=== PATIENT | male | born 1970 ===

== ENCOUNTER 2017-12-13 16:40 | Inpatient (IN) | payer OTHER ==
--- NOTE | 2017-12-13 17:30 | ED PDOC ---
HPI: SOB/CHF/COPD Time Seen by Provider: 12/13/17 17:10 Chief Complaint (Nursing): Shortness Of Breath Chief Complaint (Provider): Cough and shortness of breath History Per: Patient History/Exam Limitations: no limitations Additional Complaint(s): Patient is a 47 y/o male with a past medical history of bronchitis presenting to the emergency department for a cough, shortness of breath, and a recent fever ongoing for one week. Patient was sent from his PMD Dr. Briggs who noted that patient had pneumonia as found by a chest x-ray performed. Reports frequent cases of bronchitis over the winter. However, states that this year his symptoms seem worse. Further notes body aches and a headache when coughing. Denies hemoptysis, lower extremity edema, or other complaints. Of note, patient did not receive the flu shot this year. Past Medical History Reviewed: Historical Data, Nursing Documentation, Vital Signs Vital Signs: Last Vital Signs Temp 98.5 F 12/13/17 16:52 Pulse 108 H 12/13/17 18:18 Resp 16 12/13/17 16:52 BP 134/85 12/13/17 16:52 Pulse Ox 100 12/13/17 18:18 - Medical History PMH: Bronchitis - Surgical History Surgical History: Hernia Repair Other surgeries: hand and knee surgery - Family History Family History: States: Stroke - Social History Current smoker - smoking cessation education provided: No Ex-Smoker (has not smoked in the last 12 months): No - Allergies Allergies/Adverse Reactions: Allergies Allergy/AdvReac Type Severity Reaction Status Date / Time No Known Allergies Allergy Verified 12/13/17 16:51 Review of Systems ROS Statement: Except As Marked, All Systems Reviewed And Found Negative Constitutional: Positive for: Fever, Chills, Malaise, Other (fatigue) Cardiovascular: Negative for: Edema (extremity) Respiratory: Positive for: Cough. Negative for: Hemoptysis Physical Exam - Reviewed Nursing Documentation Reviewed: Yes Vital Signs Reviewed: Yes - Physical Exam Appears: Positive for: Well, Non-toxic, No Acute Distress Head Exam: Positive for: ATRAUMATIC, NORMAL INSPECTION, NORMOCEPHALIC Skin: Positive for: Normal Color, Warm, Dry Eye Exam: Positive for: Normal appearance Neck: Positive for: Normal Cardiovascular/Chest: Positive for: Regular Rate, Rhythm. Negative for: Murmur Respiratory: Positive for: Normal Breath Sounds. Negative for: Accessory Muscle Use, Respiratory Distress Gastrointestinal/Abdominal: Positive for: Normal Exam, Soft. Negative for: Tenderness Extremity: Positive for: Normal ROM. Negative for: Pedal Edema Neurologic/Psych: Positive for: Alert, maintenance controller II-XII (normal), Oriented (x3), Cerebellar Tests (normal), Gait (steady). Negative for: Motor/Sensory Deficits , Aphasia, Facial Droop - Laboratory Results Result Diagrams: 12/13/17 17:42 12/13/17 17:42 - ECG ECG: Positive for: Interpreted By Me, Viewed By Me ECG Rhythm: Positive for: Sinus Tachycardia, Nonspecific Changes Rate: 108 O2 Sat by Pulse Oximetry: 100 (RA) Pulse Ox Interpretation: Normal Medical Decision Making Medical Decision Making: Time: 17:11 Initial plan: Venous blood gases EKG CMP Lipase Magnesium Phosphorous CBC Partial Thomboplastin Prothrombin Time CXR Urine Culture Influenza Stat Urinalysis Reevaluation Work up for upper respiratory infection and pneumonia will be provided. Rule out sepsis. 17:23 Chest x-ray reviewed. Findings noted as follows: FINDINGS: LUNGS: Infiltrate lateral segment right lower lobe with air bronchograms likely pneumonia. PLEURA: No significant pleural effusion identified, no pneumothorax apparent. CARDIOVASCULAR: Normal. OSSEOUS STRUCTURES: No significant abnormalities. VISUALIZED UPPER ABDOMEN: Normal. OTHER FINDINGS: None. IMPRESSION: Right lower lobe infiltrate/pneumonia. Pt to be admitted to Dr Briggs Repeat lactate ordered Scribe Attestation: Documented by Stefania Sanders, acting as a scribe for Trevor Bethea III, DO. Provider Scribe Attestation: All medical record entries made by the Scribe were at my direction and personally dictated by me. I have reviewed the chart and agree that the record accurately reflects my personal performance of the history, physical exam, medical decision making, and the department course for this patient. I have also personally directed, reviewed, and agree with the discharge instructions and disposition. Disposition - Clinical Impression Clinical Impression: Pneumonia - Patient ED Disposition Is Patient to be Admitted: Yes Counseled Patient/Family Regarding: Studies Performed, Diagnosis - Disposition Disposition Time: 18:45 Condition: FAIR Forms: [employer] (Albanian) - Pt Status Changed To: Hospital Disposition Of: Inpatient - Admit Certification Admit to Inpatient:: After my assessment, the patient will require hospitalization for at least two midnights. This is because of the severity of symptoms shown, intensity of services needed, and/or the medical risk in this patient being treated as an outpatient. - POA Present On Arrival: None
[2017-12-13 17:46] LABS: BASO % 0.4 % (0.0-2.0); EOS % 0.2 % (0.0-4.0); HEMOGLOBIN 15.4 g/dL (12.0-18.0); LYMPH # 0.4 K/uL (1.0-4.3); LYMPH % 4.9 % (20.0-40.0); MEAN CELL VOLUME 88.1 fl (80.0-94.0); MEAN CORPUSCULAR HEMOGLOBIN 30.1 pg (27.0-31.0); MEAN CORPUSCULAR HGB CONC 34.2 g/dL (33.0-37.0); MEAN PLATELET VOLUME 8.1 fl (7.2-11.7); MONO # 0.3 K/uL (0.0-0.8); MONO % 3.7 % (0.0-10.0); NEUT # 7.4 K/uL (1.8-7.0); NEUT % 90.8 % (50.0-75.0); NRBC % 0.5 % (0.0-0.0); PLATELET COUNT 177 K/uL (130-400); RBC 5.12 Mil/uL (4.40-5.90); RED CELL DISTRIBUTION WIDTH 13.8 % (11.5-14.5); WHITE BLOOD COUNT 8.2 K/uL (4.8-10.8)
[2017-12-13 17:54] LABS: VENOUS BLOOD GAS BASE EXCESS 1.1 mmol/L (0.0-2.0); VENOUS BLOOD GAS PCO2 37 mmHg (40-60); VENOUS BLOOD GAS PO2 17 mm/Hg (30-55); VENOUS BLOOD PH 7.44 (7.32-7.43)
[2017-12-13 17:56] LABS: ALB/GLOB RATIO 1.2 (1.0-2.1); ALBUMIN 4.4 g/dL (3.5-5.0); ALT/SGPT 45 U/L (21-72); AST/SGOT 29 U/L (17-59); BLOOD UREA NITROGEN 14 mg/dl (9-20); CALCIUM 9.2 mg/dL (8.4-10.2); GFR AFRICAN-AMERICAN > 60; GFR NON-AFRICAN AMERICAN > 60; LIPASE 26 U/L (23-300); MAGNESIUM 1.9 MG/DL (1.6-2.3)
--- NOTE | 2017-12-13 18:12 | RAD ---
HISTORY: History of pneumonia COMPARISON: No prior. FINDINGS: LUNGS: Infiltrate lateral segment right lower lobe with air bronchograms likely pneumonia. PLEURA: No significant pleural effusion identified, no pneumothorax apparent. CARDIOVASCULAR: Normal. OSSEOUS STRUCTURES: No significant abnormalities. VISUALIZED UPPER ABDOMEN: Normal. OTHER FINDINGS: None. IMPRESSION: Right lower lobe infiltrate/pneumonia.
[2017-12-13 18:15] LABS: INR 1.2 (0.9-1.2); PARTIAL THROMBOPLASTIN TIME 29.2 Seconds (25.6-37.1)
[2017-12-13] MEDS ORDERED: Sodium Chloride 0.9% 1,000 ML IV STA (19:09)
[2017-12-13 19:26] LABS: LYMPHOCYTE 5 % (20-50); MONOCYTE 4 % (0-10); NEUTROPHIL 91 % (42-75); PLATELET ESTIMATE NORMAL (NORMAL); TOTAL CELLS COUNTED 100
[2017-12-13 20:37] LABS: SQUAMOUS EPITHIAL 5 /hpf (0-5); URINE BILIRUBIN NEGATIVE (NEGATIVE); URINE BLOOD SMALL (NEGATIVE); URINE CLARITY SLIGHTY-CLOUDY (Clear); URINE COLOR YELLOW (YELLOW); URINE GLUCOSE (UA) NEG (Normal); URINE LEUKOCYTE ESTERASE SMALL Leu/uL (Negative); URINE NITRATE NEGATIVE (NEGATIVE); URINE PROTEIN 100 mg/dL (NEGATIVE)
[2017-12-13 21:08] LABS: VENOUS BLOOD GAS BASE EXCESS 0.1 mmol/L (0.0-2.0); VENOUS BLOOD GAS PCO2 34 mmHg (40-60); VENOUS BLOOD GAS PO2 33 mm/Hg (30-55); VENOUS BLOOD PH 7.45 (7.32-7.43)
[2017-12-13] MEDS ORDERED: Sodium Chloride 3% for Inhalation 4 ML VIAL.NEB IH PRN (21:32)
[2017-12-13] MEDS: Albuterol 0.083% Inhal Sol (2.5 mg/3 mL) UD INH PRN (23:24)
[2017-12-13] MEDS: Sodium Chloride 0.9% 1,000 ML IV SCH (23:59)
[2017-12-14] MEDS ORDERED: Influenza Vaccine 18yr & older 0.5 ML/45 MCG SYR IM ONE (06:00)
[2017-12-14] MEDS ORDERED: Pneumococcal 23-Valent Vaccine IM ONE (06:00)
[2017-12-14 06:35] LABS: BLOOD UREA NITROGEN 14 mg/dl (9-20); CALCIUM 8.5 mg/dL (8.4-10.2); GFR AFRICAN-AMERICAN > 60; GFR NON-AFRICAN AMERICAN > 60
[2017-12-14 06:39] LABS: BASO % 0.2 % (0.0-2.0); HEMOGLOBIN 13.9 g/dL (12.0-18.0); LYMPH # 0.7 K/uL (1.0-4.3); LYMPH % 10.2 % (20.0-40.0); MEAN CORPUSCULAR HGB CONC 34.1 g/dL (33.0-37.0); MEAN PLATELET VOLUME 8.4 fl (7.2-11.7); MONO # 0.5 K/uL (0.0-0.8); MONO % 6.8 % (0.0-10.0); NEUT # 5.8 K/uL (1.8-7.0); NEUT % 82.8 % (50.0-75.0); NRBC % 0.1 % (0.0-0.0); RBC 4.63 Mil/uL (4.40-5.90); RED CELL DISTRIBUTION WIDTH 13.2 % (11.5-14.5)
[2017-12-14] MEDS ORDERED: Azithromycin 500 MG in Sodium Chloride 0.9% 250 ML IVPB SCH (09:00)
[2017-12-14] MEDS: Enoxaparin 40 mg Syringe SC SCH (09:00)
[2017-12-14] MEDS: Sodium Chloride 0.9% 1,000 ML IV SCH (09:05)
[2017-12-14] MEDS: Albuterol 0.083% Inhal Sol (2.5 mg/3 mL) UD INH PRN (09:07)
--- NOTE | 2017-12-14 12:55 | RAD ---
HISTORY: Pneumonia. COMPARISON: December 13, 2017. TECHNIQUE: Chest PA and lateral FINDINGS: LUNGS: Stable right middle lobe infiltrate PLEURA: No significant pleural effusion identified. No pneumothorax apparent. CARDIOVASCULAR: No radiographic findings to suggest acute or significant cardiovascular disease. OSSEOUS STRUCTURES: No significant abnormalities. VISUALIZED UPPER ABDOMEN: Normal. OTHER FINDINGS: None. IMPRESSION: Stable infiltrate right lung/ right middle lobe lateral segment consistent with acute pneumonia unchanged compared to the prior study.
[2017-12-14] MEDS: Azithromycin 500 MG in Sodium Chloride 0.9% 250 ML IVPB SCH (13:05)
--- NOTE | 2017-12-14 13:54 | CP.PCM.HP ---
History of Present Illness - History of Present Illness History of Present Illness: Patient presented with hx of fever, persistent severe cough,SOB, rigors, headaches, myalgia and general malaise x 3 days. In ER was found to have a large rt lover lobe infiltrate, lactic acidosis t 101, tachycardia, hypoximia. Patient still c/o rigors, fever, general malaise. Denies any exposure to TB, smoking, chemical exposure, COPD> Patient on Testosterone replacement TestoPal. The pulmonary side effect of the drug include pulmonary microembolism, respiratory infection, copd, respiratory distress. Present on Admission - Present on Admission Any Indicators Present on Admission: No Past Patient History - Past Medical History & Family History Past Medical History?: Yes - Past Social History Smoking Status: Former Smoker - CARDIAC Hx Cardiac Disorders: No - PULMONARY Hx Respiratory Disorders: Yes Hx Bronchitis: Yes - NEUROLOGICAL Hx Neurological Disorder: No - HEENT Hx HEENT Problems: No - RENAL Hx Chronic Kidney Disease: No - ENDOCRINE/METABOLIC Hx Endocrine Disorders: No - HEMATOLOGICAL/ONCOLOGICAL Hx Blood Disorders: No - INTEGUMENTARY Hx Dermatological Problems: No - MUSCULOSKELETAL/RHEUMATOLOGICAL Hx Musculoskeletal Disorders: No Hx Falls: No - GASTROINTESTINAL Hx Gastrointestinal Disorders: No - GENITOURINARY/GYNECOLOGICAL Hx Genitourinary Disorders: No - PSYCHIATRIC Hx Psychophysiologic Disorder: No Hx Substance Use: No - SURGICAL HISTORY Hx Surgeries: Yes Hx Herniorrhaphy: Yes (Left inguinal) Other/Comment: right knee surgery x 2. right hand surgery X 2 - ANESTHESIA Hx Anesthesia: Yes Hx Anesthesia Reactions: No Hx Malignant Hyperthermia: No Meds Allergies/Adverse Reactions: Allergies Allergy/AdvReac Type Severity Reaction Status Date / Time No Known Allergies Allergy Verified 12/13/17 16:51 Physical Exam - Constitutional Appears: Chronically Ill - Head Exam Head Exam: ATRAUMATIC, NORMAL INSPECTION, NORMOCEPHALIC - Eye Exam Eye Exam: Normal appearance - ENT Exam ENT Exam: Mucous Membranes Moist - Neck Exam Neck exam: Positive for: Normal Inspection - Respiratory Exam Respiratory Exam: Decreased Breath Sounds, Rales, Rhonchi - Cardiovascular Exam Cardiovascular Exam: Bradycardia, REGULAR RHYTHM, +S1, +S2 - GI/Abdominal Exam GI & Abdominal Exam: Normal Bowel Sounds - Extremities Exam Extremities exam: Positive for: normal inspection - Neurological Exam Neurological exam: Alert, CN II-XII Intact, Oriented x3, Reflexes Normal - Psychiatric Exam Psychiatric exam: Normal Affect - Skin Skin Exam: Normal Color Results - Vital Signs Recent Vital Signs: Last Vital Signs Temp 99.4 F 12/14/17 12:00 Pulse 115 H 12/14/17 12:00 Resp 18 12/14/17 12:00 BP 140/81 12/14/17 12:00 Pulse Ox 96 12/14/17 12:00 - Labs Result Diagrams: 12/14/17 05:45 12/14/17 05:45 Labs: Laboratory Results - last 24 hr 12/13/17 12/13/17 12/13/17 17:40 17:42 17:42 WBC 8.2 RBC 5.12 Hgb 15.4 Hct 45.1 MCV 88.1 MCH 30.1 MCHC 34.2 RDW 13.8 Plt Count 177 MPV 8.1 Neut % (Auto) 90.8 H Lymph % (Auto) 4.9 L [place] % (Auto) 3.7 Eos % (Auto) 0.2 Baso % (Auto) 0.4 Neut # 7.4 H Lymph # 0.4 L [place] # 0.3 Eos # 0.0 Baso # 0.0 Neutrophils % (Manual) 91 H Lymphocytes % (Manual) 5 L Monocytes % (Manual) 4 Platelet Estimate Normal RBC Morphology Normal PT 13.0 INR 1.2 APTT 29.2 pO2 VBG pH VBG pCO2 VBG HCO3 VBG Total CO2 VBG O2 Sat (Calc) VBG Base Excess VBG Potassium Glucose Lactate FiO2 Sodium Potassium Chloride Carbon Dioxide Anion Gap BUN Creatinine Est GFR ( Amer) Est GFR (Non-Af Amer) Random Glucose Calcium Phosphorus Magnesium Total Bilirubin AST ALT Alkaline Phosphatase Total Protein Albumin Globulin Albumin/Globulin Ratio Lipase Venous Blood Potassium Urine Color Urine Clarity Urine pH Ur Specific [place] Urine Protein Urine Glucose (UA) Urine Ketones Urine Blood Urine Nitrate Urine Bilirubin Urine Urobilinogen Ur Leukocyte Esterase Urine RBC (Auto) Urine Microscopic WBC Ur Squamous Epith Cells Influenza Typ A,B (EIA) Negative for flu a/b 12/13/17 12/13/17 12/13/17 17:42 17:49 19:46 WBC RBC Hgb Hct MCV MCH MCHC RDW Plt Count MPV Neut % (Auto) Lymph % (Auto) [place] % (Auto) Eos % (Auto) Baso % (Auto) Neut # Lymph # [place] # Eos # Baso # Neutrophils % (Manual) Lymphocytes % (Manual) Monocytes % (Manual) Platelet Estimate RBC Morphology PT INR APTT pO2 17 L VBG pH 7.44 H VBG pCO2 37 L VBG HCO3 23.9 VBG Total CO2 26.2 VBG O2 Sat (Calc) 51.1 VBG Base Excess 1.1 VBG Potassium 3.5 L Glucose 113 H Lactate 2.0 FiO2 21.0 Sodium 140 138.0 Potassium 3.6 Chloride 102 102.0 Carbon Dioxide 25 Anion Gap 17 BUN 14 Creatinine 1.2 Est GFR ( Amer) > 60 Est GFR (Non-Af Amer) > 60 Random Glucose 117 H Calcium 9.2 Phosphorus 1.7 L Magnesium 1.9 Total Bilirubin 3.3 H AST 29 ALT 45 Alkaline Phosphatase 80 Total Protein 8.0 Albumin 4.4 Globulin 3.6 Albumin/Globulin Ratio 1.2 Lipase 26 Venous Blood Potassium 3.5 L Urine Color Yellow Urine Clarity Slighty-cloudy Urine pH 7.0 Ur Specific [place] 1.027 Urine Protein 100 Urine Glucose (UA) Neg Urine Ketones Trace Urine Blood Small Urine Nitrate Negative Urine Bilirubin Negative Urine Urobilinogen 4.0 Ur Leukocyte Esterase Small Urine RBC (Auto) 6 H Urine Microscopic WBC 7 H Ur Squamous Epith Cells 5 Influenza Typ A,B (EIA) 12/13/17 12/14/17 12/14/17 21:05 05:45 05:45 WBC 7.0 RBC 4.63 Hgb 13.9 Hct 40.7 MCV 88.0 MCH 30.0 MCHC 34.1 RDW 13.2 Plt Count 163 MPV 8.4 Neut % (Auto) 82.8 H Lymph % (Auto) 10.2 L [place] % (Auto) 6.8 Eos % (Auto) 0.0 Baso % (Auto) 0.2 Neut # 5.8 Lymph # 0.7 L [place] # 0.5 Eos # 0.0 Baso # 0.0 Neutrophils % (Manual) Lymphocytes % (Manual) Monocytes % (Manual) Platelet Estimate RBC Morphology PT INR APTT pO2 33 VBG pH 7.45 H VBG pCO2 34 L VBG HCO3 24.2 VBG Total CO2 24.6 VBG O2 Sat (Calc) 81.0 H VBG Base Excess 0.1 VBG Potassium 3.4 L Glucose 132 H Lactate 1.6 FiO2 21.0 Sodium 136.0 139 Potassium 3.6 Chloride 104.0 105 Carbon Dioxide 22 Anion Gap 16 BUN 14 Creatinine 0.9 Est GFR ( Amer) > 60 Est GFR (Non-Af Amer) > 60 Random Glucose 118 H Calcium 8.5 Phosphorus Magnesium Total Bilirubin AST ALT Alkaline Phosphatase Total Protein Albumin Globulin Albumin/Globulin Ratio Lipase Venous Blood Potassium 3.4 L Urine Color Urine Clarity Urine pH Ur Specific [place] Urine Protein Urine Glucose (UA) Urine Ketones Urine Blood Urine Nitrate Urine Bilirubin Urine Urobilinogen Ur Leukocyte Esterase Urine RBC (Auto) Urine Microscopic WBC Ur Squamous Epith Cells Influenza Typ A,B (EIA) Assessment & Plan (1) Testosterone deficiency Status: Acute (2) Pneumonia Status: Acute (3) Pulmonary embolism Status: Acute - Assessment and Plan (Free Text) Plan: As per orders.
[2017-12-14] MEDS ORDERED: Iodixanol 320 MG/ML 100 ML BOTTLE IV ONE (16:35)
[2017-12-14] MEDS ORDERED: Sodium Chloride 0.9% 50 ML IV ONE (16:36)
[2017-12-14] MEDS: Lactobacillus Acidophilus 500 MU Cap PO SCH (17:12)
[2017-12-14] MEDS: Piperacillin/Tazobact 3.375 GM in Sodium Chloride 0.9% 100 ML IVPB SCH (17:13)
--- NOTE | 2017-12-14 18:49 | CT ---
PROCEDURE: CT Chest with contrast (Pulmonary Angiogram) HISTORY: r/o PE COMPARISON: None available. TECHNIQUE: Axial computed tomography images were obtained of the chest in the pulmonary arterial phase of enhancement. Coronal and sagittal reformatted images were created and reviewed. Maximum intensity projection (MIP) reconstructed images in the following planes: Axial projection. Intravenous contrast dose: 95 cc Omnipaque 300. Mean Hounsfield unit values in the main pulmonary artery: 225.26 Radiation dose: Total exam DLP = 442.84 mGy-cm. This CT exam was performed using one or more of the following dose reduction techniques: Automated exposure control, adjustment of the mA and/or kV according to patient size, and/or use of iterative reconstruction technique. FINDINGS: PULMONARY ARTERIES: Unremarkable. No pulmonary embolism. AORTA: No acute findings. No thoracic aortic aneurysm. LUNGS: Extensive right middle lobe infiltrate/pneumonia. Similar findings identified on recent chest radiograph. No additional pulmonary abnormality is. PLEURAL SPACES: Unremarkable. No effusion or pneuomothorax. HEART: Unremarkable. No cardiomegaly. No significant pericardial effusion. LYMPH NODES: Solitary right hilar lymph node 1.4 x 2.2 cm of uncertain etiology/ significance. BONES, CHEST WALL: Unremarkable. No fracture or destructive lesion OTHER FINDINGS: Unremarkable. IMPRESSION: Unremarkable CT pulmonary angiogram. No pulmonary embolus. Limitations of the current examination: Nondiagnostic assessment of pulmonary emboli beyond the segmental branch level. Poor opacification of pulmonary arterial system with contrast measured quantitatively as well as qualitatively noted. Right middle lobe infiltrate/pneumonia.
[2017-12-15] MEDS: Piperacillin/Tazobact 3.375 GM in Sodium Chloride 0.9% 100 ML IVPB SCH ×3 (00:39→18:23)
[2017-12-15 06:07] LABS: HEMOGLOBIN 13.9 g/dL (12.0-18.0); MEAN CELL VOLUME 88.6 fl (80.0-94.0); MEAN CORPUSCULAR HEMOGLOBIN 29.7 pg (27.0-31.0); MEAN CORPUSCULAR HGB CONC 33.6 g/dL (33.0-37.0); RBC 4.68 Mil/uL (4.40-5.90); RED CELL DISTRIBUTION WIDTH 13.6 % (11.5-14.5); WHITE BLOOD COUNT 6.2 K/uL (4.8-10.8)
[2017-12-15 06:24] LABS: BLOOD UREA NITROGEN 15 mg/dl (9-20); CALCIUM 8.8 mg/dL (8.4-10.2); GFR AFRICAN-AMERICAN > 60; GFR NON-AFRICAN AMERICAN > 60
[2017-12-15] MEDS: Azithromycin 500 MG in Sodium Chloride 0.9% 250 ML IVPB SCH (09:18)
[2017-12-15] MEDS: Enoxaparin 40 mg Syringe SC SCH (09:19)
[2017-12-15] MEDS: Lactobacillus Acidophilus 500 MU Cap PO SCH ×2 (09:20→18:23)
--- NOTE | 2017-12-15 11:20 | CARD ---
APPROVED REPORT EKG Measurement Heart [id number] CT [id number] <Conclusion> Sinus tachycardia Nonspecific T wave abnormality Abnormal ECG
--- NOTE | 2017-12-15 11:41 | CP.PCM.CON ---
History of Present Illness - History of Present Illness History of Present Illness: This 47-year-old male former cigarette smoker who receives testosterone replacement therapy was admitted by his primary medical doctor because of fever with productive cough, shortness of breath, chills with myalgias and general malaise which had persisted for approximately one week prior to this admission despite outpatient therapy. He was referred for chest x-ray which revealed a right lower lobe infiltrate and was found to be tachycardic and mildly hypoxemic when he presented to the emergency department. He denied chest pain or hemoptysis. He does admit to having had prior episodes of bronchitis which occur primarily over the winter months. He denied any known ill contact. Past medical history: Recurrent bronchitis. No prior history of pneumonia, asthma, tuberculosis exposure, coronary artery disease, hypertension, diabetes, peptic ulcer disease or renal disease. He did have mononucleosis but no other liver disease. Past surgical history: Left inguinal hernia repair, right knee and right hand surgery. Past Patient History - Past Medical History & Family History Past Medical History?: Yes - Past Social History Smoking Status: Former Smoker Chewing Tobacco Use: No Cigar Use: No Alcohol: Social Drugs: Denies Home Situation {Lives}: With Family - CARDIAC Hx Cardiac Disorders: No - PULMONARY Hx Bronchitis: Yes - NEUROLOGICAL Hx Neurological Disorder: No - HEENT Hx HEENT Problems: No - RENAL Hx Chronic Kidney Disease: No - ENDOCRINE/METABOLIC Hx Endocrine Disorders: No - HEMATOLOGICAL/ONCOLOGICAL Hx Blood Disorders: No - INTEGUMENTARY Hx Dermatological Problems: No - MUSCULOSKELETAL/RHEUMATOLOGICAL Hx Musculoskeletal Disorders: No Hx Falls: No - GASTROINTESTINAL Hx Gastrointestinal Disorders: No Other/Comment: Mononucleosis - GENITOURINARY/GYNECOLOGICAL Hx Genitourinary Disorders: No - PSYCHIATRIC Hx Psychophysiologic Disorder: No Hx Substance Use: No - SURGICAL HISTORY Hx Surgeries: Yes Hx Herniorrhaphy: Yes (Left inguinal) Other/Comment: right knee surgery x 2. right hand surgery X 2 - ANESTHESIA Hx Anesthesia: Yes Hx Anesthesia Reactions: No Hx Malignant Hyperthermia: No Meds Allergies/Adverse Reactions: Allergies Allergy/AdvReac Type Severity Reaction Status Date / Time Iodinated Contrast- Oral and AdvReac ITCHING Verified 12/14/17 15:49 IV Dye - Medications Medications: Current Medications Acetaminophen (Tylenol 325mg Tab) 650 mg PO Q4 PRN PRN Reason: fever Last Admin: 01/23/18 13:59 Dose: 650 mg Albuterol Sulfate (Albuterol 0.083% Inhal Suzanne (2.5 Mg/3 Ml) Ud) 2.5 mg INH RQ6 PRN PRN Reason: Shortness of Breath Last Admin: 12/14/17 09:07 Dose: 2.5 mg Aspirin (Aspirin Chewable) 81 mg PO DAILY [facility] Last Admin: 12/15/17 09:17 Dose: 81 mg Enoxaparin Sodium (Lovenox) 40 mg SC DAILY MAHESH PRN Reason: Protocol Last Admin: 12/15/17 09:19 Dose: 40 mg Azithromycin 500 mg/ Sodium (Chloride) 250 mls @ 250 mls/hr IVPB DAILY MAHESH PRN Reason: Protocol Last Admin: 12/15/17 09:18 Dose: 250 mls/hr Piperacillin Sod/Tazobactam (Sod 3.375 gm/ Sodium Chloride) 100 mls @ 100 mls/ hr IVPB Q8 MAHESH PRN Reason: Protocol Last Admin: 12/15/17 09:17 Dose: 100 mls/hr Lactobacillus Acidophilus (Bacid Acidophilus) 1 cap PO BID [facility] Last Admin: 12/15/17 09:20 Dose: 1 cap Physical Exam - Additional Findings Additional findings: Well-nourished, well-developed male with generalized flushing. Conjunctivae are pink and there is no scleral icterus. Nares are patent bilaterally. No bleeding or exudate. Pharynx is pink and mucous membranes are moist. No neck vein distention or carotid bruit. No palpable thyromegaly. No palpable lymphadenopathy. No dullness on chest percussion. Equal expansion. Normal vocal tactile fremitus. Breath sounds are well heard bilaterally. Rhonchi and medium rales are heard in the anterolateral lower chest wall on the right. No audible wheezing. Left lung remains clear. No bronchial breathing or egophony. Heart sounds are well heard and the rhythm is regular. Abdomen soft and nontender with normal bowel sounds. No dependent edema of the lower extremities. No calf tenderness or palpable venous cords. No cyanosis. Peripheral pulses are intact in all extremities. Results - Vital Signs Recent Vital Signs: Last Vital Signs Temp 97.5 F L 12/15/17 08:07 Pulse 81 12/15/17 08:07 Resp 18 12/15/17 08:07 BP 121/79 12/15/17 08:07 Pulse Ox 99 12/15/17 08:07 - Labs Result Diagrams: 12/15/17 05:53 12/15/17 05:53 Labs: Laboratory Results - last 24 hr 12/14/17 12/14/17 12/14/17 14:18 17:24 18:20 WBC RBC Hgb Hct MCV MCH MCHC RDW Plt Count Sodium Potassium Chloride Carbon Dioxide Anion Gap BUN Creatinine Est GFR ( Amer) Est GFR (Non-Af Amer) Random Glucose Calcium Prostate Specific Ag 2.68 TSH 3rd Generation 1.26 HIV-1 Ab Rapid Screen Non reactive Ur L.pneumophila Ag Negative 12/15/17 12/15/17 05:53 05:53 WBC 6.2 RBC 4.68 Hgb 13.9 Hct 41.4 MCV 88.6 MCH 29.7 MCHC 33.6 RDW 13.6 Plt Count 192 Sodium 143 Potassium 3.7 Chloride 105 Carbon Dioxide 24 Anion Gap 18 BUN 15 Creatinine 1.0 Est GFR ( Amer) > 60 Est GFR (Non-Af Amer) > 60 Random Glucose 107 Calcium 8.8 Prostate Specific Ag TSH 3rd Generation HIV-1 Ab Rapid Screen Ur L.pneumophila Ag Assessment & Plan (1) Primary atypical pneumonia Status: Acute Priority: High Comment: Likely Mycoplasma related. Would continue azithromycin 500MG daily to complete 10 days of therapy. May add oral cephalosporin like Omnicef 300 BID to regimen as well. Follow up chest x-ray tomorrow AM prior to discharge. - Date & Time Date: 12/15/17 Time: 11:38
--- NOTE | 2017-12-15 12:55 | CP.PCM.CON ---
History of Present Illness - History of Present Illness History of Present Illness: 47 y/o male presenting to the emergency department for a cough, shortness of breath, and a recent fever ongoing for one week. Patient was sent from his PMD Dr. Briggs who noted that patient had pneumonia as found by a chest x-ray performed. . Further notes body aches and a headache when coughing. Denies hemoptysis, lower extremity edema, or other complaints. denies travel except [place] in early november Pets or exposure to toxins, aerosols works in biomedical research No live cultures or lab animals No smoking Ill child at home with URI symptoms Found to have RML infiltrate on CXR Thus far cultures are negative ID consulted for antibiotic management - Medical History PMH: Bronchitis - Surgical History Surgical History: Hernia Repair Other surgeries: hand and knee surgery Review of Systems - Review of Systems All systems: reviewed and no additional remarkable complaints except - Constitutional Constitutional: As Per HPI, Anorexia, Chills, Fever, Malaise - EENT Eyes: absent: As Per HPI, Blind Spots, Blurred Vision, Change in Vision, Decreased Night Vision, Diplopia, Discharge, Dry Eye, Exophthalmos, Floaters, Irritation, Itchy Eyes, Loss of Peripheral Vision, Pain, Photophobia, Requires Corrective Lenses, Sees Flashes, Spots in Vision, Tunnel Vision, Other Visual Disturbances, Loss of Vision, Other Ears: absent: As Per HPI, Decreased Hearing, Ear Discharge, Ear Pain, Tinnitus, Abnormal Hearing, Disequilibrium, Dizziness, Other Nose/Mouth/Throat: absent: As Per HPI, Epistaxis, Nasal Congestion, Nasal Discharge, Nasal Obstruction, Nasal Trauma, Nose Pain, Post Nasal Drip, Sinus Pain, Sinus Pressure, Bleeding Gums, Change in Voice, Dental Pain, Dry Mouth, Dysphagia, Halitosis, Hoarsness, Lip Swelling, Mouth Lesions, Mouth Pain, Odynophagia, Sore Throat, Throat Swelling, Tongue Swelling, Facial Pain, Neck Pain, Neck Mass, Other - Cardiovascular Cardiovascular: absent: As Per HPI, Acrocyanosis, Chest Pain, Chest Pain at Rest , Chest Pain with Activity, Claudication, Diaphoresis, Dyspnea, Dyspnea on Exertion, Edema, Irregular Heart Rhythm, Pain Radiating to Arm/Neck/Jaw, Leg Edema, Leg Ulcers, Lightheadedness, Orthopnea, Palpitations, Paroxysmal Nocturnal Dyspnea, Pedal Edema, Radiating Pain, Rapid Heart Rate, Slow Heart Rate, Syncope, Other - Respiratory Respiratory: As Per HPI, Cough. absent: Dyspnea, Hemoptysis - Gastrointestinal Gastrointestinal: absent: As Per HPI, Abdominal Pain, Belching, Bloating, Change in Bowel Habits, Change in Stool Character, Coffee Ground Emesis, Constipation, Cramping, Diarrhea, Dyspepsia, Dysphagia, Early Satiety, Excessive Flatus, Fecal Incontinence, Heartburn, Hematemesis, Hematochezia, Loose Stools, Melena, Nausea, Odynophagia, Temesmus, Vomiting, Other - Genitourinary Genitourinary: absent: As Per HPI, Change in Urinary Stream, Difficulty Urinating, Dysuria, Flank Pain, Hematuria, Pyuria, Nocturia, Urinary Incontinence, Urinary Frequency, Urinary Hesitance, Urinary Urgency, Voiding Freq/Small Amts, Freq UTI, Hx Renal/Bladder Calculi, Hx /Renal Surgery, Bladder Distension, Other - Musculoskeletal Musculoskeletal: absent: As Per HPI, Abnormal Gait, Arthralgias, Atrophy, Back Pain, Deformity, Joint Swelling, Limited Range of Motion, Loss of Height, Muscle Cramps, Muscle Weakness, Myalgias, Neck Pain, Numbness, Radiating Pain into Limb, Stiffness, Tingling, Other - Integumentary Integumentary: As Per HPI - Neurological Neurological: absent: As Per HPI, Abnormal Gait, Abnormal Hearing, Abnormal Movements, Abnormal Speech, Behavioral Changes, Burning Sensations, Confusion, Convulsions, Disequilibrium, Dizziness, Numbness, Focal Weakness, Frequent Falls , Headaches, Lack of Coordination, Loss of Vision, Memory Loss, Paresthesias, Radicular Pain, Restless Legs, Sensory Deficit, Syncope, Tingling, Tremor, Vertigo, Weakness, Other Visual Disturbances, Other - Psychiatric Psychiatric: absent: As Per HPI, Abnormal Sleep Pattern, Anhedonia, Anxiety, Auditory Hallucinations, Behavioral Changes, Change in Appetite, Change in Libido, Confusion, Depression, Difficulty Concentrating, Hallucinations, Homicidal Ideation, Hopelessness, Irritability, Memory Loss, Mood Swings, Panic Attacks, Paranoia, Suicidal Ideation, Visual Hallucinations, Tactile Hallucinations, Other - Endocrine Endocrine: absent: As Per HPI, Change in Body Appearance, Change in Libido, Cold Intolorance, Deepening of Voice, Excessive Sweating, Fatigue, Flushing, Heat Intolorance, Increase in Ring/Shoe/Hat Size, Palpitations, Polydipsia, Polyphagia, Polyuria, Other - Hematologic/Lymphatic Hematologic: absent: As Per HPI, Easy Bleeding, Easy Bruising, Lymphadenopathy, Other Past Patient History - Past Medical History & Family History Past Medical History?: Yes - Past Social History Smoking Status: Former Smoker - CARDIAC Hx Cardiac Disorders: No - PULMONARY Hx Respiratory Disorders: Yes Hx Bronchitis: Yes - NEUROLOGICAL Hx Neurological Disorder: No - HEENT Hx HEENT Problems: No - RENAL Hx Chronic Kidney Disease: No - ENDOCRINE/METABOLIC Hx Endocrine Disorders: No - HEMATOLOGICAL/ONCOLOGICAL Hx Blood Disorders: No - INTEGUMENTARY Hx Dermatological Problems: No - MUSCULOSKELETAL/RHEUMATOLOGICAL Hx Musculoskeletal Disorders: No Hx Falls: No - GASTROINTESTINAL Hx Gastrointestinal Disorders: No - GENITOURINARY/GYNECOLOGICAL Hx Genitourinary Disorders: No - PSYCHIATRIC Hx Psychophysiologic Disorder: No Hx Substance Use: No - SURGICAL HISTORY Hx Surgeries: Yes Hx Herniorrhaphy: Yes (Left inguinal) Other/Comment: right knee surgery x 2. right hand surgery X 2 - ANESTHESIA Hx Anesthesia: Yes Hx Anesthesia Reactions: No Hx Malignant Hyperthermia: No Meds Allergies/Adverse Reactions: Allergies Allergy/AdvReac Type Severity Reaction Status Date / Time Iodinated Contrast- Oral and AdvReac ITCHING Verified 12/14/17 15:49 IV Dye - Medications Medications: Current Medications Acetaminophen (Tylenol 325mg Tab) 650 mg PO Q4 PRN PRN Reason: fever Last Admin: 12/14/17 13:59 Dose: 650 mg Albuterol Sulfate (Albuterol 0.083% Inhal Suzanne (2.5 Mg/3 Ml) Ud) 2.5 mg INH RQ6 PRN PRN Reason: Shortness of Breath Last Admin: 12/14/17 09:07 Dose: 2.5 mg Aspirin (Aspirin Chewable) 81 mg PO DAILY [facility]ESH Last Admin: 12/15/17 09:17 Dose: 81 mg Enoxaparin Sodium (Lovenox) 40 mg SC DAILY MAHESH PRN Reason: Protocol Last Admin: 12/15/17 09:19 Dose: 40 mg Azithromycin 500 mg/ Sodium (Chloride) 250 mls @ 250 mls/hr IVPB DAILY MAHESH PRN Reason: Protocol Last Admin: 12/15/17 09:18 Dose: 250 mls/hr Piperacillin Sod/Tazobactam (Sod 3.375 gm/ Sodium Chloride) 100 mls @ 100 mls/ hr IVPB Q8 MAHESH PRN Reason: Protocol Last Admin: 12/15/17 09:17 Dose: 100 mls/hr Lactobacillus Acidophilus (Bacid Acidophilus) 1 cap PO BID [facility] Last Admin: 12/15/17 09:20 Dose: 1 cap Physical Exam - Constitutional Appears: Non-toxic, No Acute Distress - Head Exam Head Exam: ATRAUMATIC, NORMAL INSPECTION, NORMOCEPHALIC - Eye Exam Eye Exam: PERRL. absent: Scleral icterus - ENT Exam ENT Exam: Mucous Membranes Dry, Normal External Ear Exam, Normal Oropharynx - Neck Exam Neck exam: Negative for: Lymphadenopathy - Respiratory Exam Respiratory Exam: Decreased Breath Sounds, Rhonchi - Cardiovascular Exam Cardiovascular Exam: REGULAR RHYTHM, +S1, +S2 - GI/Abdominal Exam GI & Abdominal Exam: Diminished Bowel Sounds, Soft. absent: Tenderness - Rectal Exam Rectal Exam: Deferred - Exam Exam: NORMAL INSPECTION - Extremities Exam Extremities exam: Positive for: pedal pulses present. Negative for: calf tenderness, pedal edema, tenderness - Back Exam Back exam: absent: CVA tenderness (L), CVA tenderness (R) - Neurological Exam Neurological exam: Alert, CN II-XII Intact, Oriented x3, Reflexes Normal - Psychiatric Exam Psychiatric exam: Normal Mood - Skin Skin Exam: Dry, Intact Results - Vital Signs Recent Vital Signs: Last Vital Signs Temp 98.3 F 12/15/17 12:24 Pulse 84 12/15/17 12:24 Resp 18 12/15/17 12:24 BP 150/94 H 12/15/17 12:24 Pulse Ox 98 12/15/17 12:24 - Labs Result Diagrams: 12/15/17 05:53 12/15/17 05:53 Labs: Laboratory Results - last 24 hr 12/14/17 12/14/17 12/14/17 14:18 17:24 18:20 WBC RBC Hgb Hct MCV MCH MCHC RDW Plt Count Sodium Potassium Chloride Carbon Dioxide Anion Gap BUN Creatinine Est GFR ( Amer) Est GFR (Non-Af Amer) Random Glucose Calcium Prostate Specific Ag 2.68 TSH 3rd Generation 1.26 HIV-1 Ab Rapid Screen Non reactive Ur L.pneumophila Ag Negative 12/15/17 12/15/17 05:53 05:53 WBC 6.2 RBC 4.68 Hgb 13.9 Hct 41.4 MCV 88.6 MCH 29.7 MCHC 33.6 RDW 13.6 Plt Count 192 Sodium 143 Potassium 3.7 Chloride 105 Carbon Dioxide 24 Anion Gap 18 BUN 15 Creatinine 1.0 Est GFR ( Amer) > 60 Est GFR (Non-Af Amer) > 60 Random Glucose 107 Calcium 8.8 Prostate Specific Ag TSH 3rd Generation HIV-1 Ab Rapid Screen Ur L.pneumophila Ag Assessment & Plan (1) Pneumonia Status: Acute (2) Primary atypical pneumonia Status: Acute Priority: High - Assessment and Plan (Free Text) Assessment: RML infiltrate- likely viral or atypical will check serologies Mycoplasma consider PO Levofloxacin 750 mg daily for 7-10 days upon discharge Pulmonary follow up with repeat imaging as out pt
--- NOTE | 2017-12-15 13:54 | CP.PCM.PN ---
Subjective - Date & Time of Evaluation Date of Evaluation: 12/15/17 Time of Evaluation: 13:54 - Subjective Subjective: Slowly improving still cough and sob Objective - Vital Signs/Intake and Output Vital Signs (last 24 hours): Temp Pulse Resp BP Pulse Ox 98.3 F 84 18 150/94 H 98 12/15/17 12:24 12/15/17 12:24 12/15/17 12:24 12/15/17 12:24 12/15/17 12:24 - Medications Medications: Current Medications Acetaminophen (Tylenol 325mg Tab) 650 mg PO Q4 PRN PRN Reason: fever Last Admin: 12/14/17 13:59 Dose: 650 mg Albuterol Sulfate (Albuterol 0.083% Inhal Suzanne (2.5 Mg/3 Ml) Ud) 2.5 mg INH RQ6 PRN PRN Reason: Shortness of Breath Last Admin: 12/14/17 09:07 Dose: 2.5 mg Aspirin (Aspirin Chewable) 81 mg PO DAILY [facility] Last Admin: 12/15/17 09:17 Dose: 81 mg Enoxaparin Sodium (Lovenox) 40 mg SC DAILY MAHESH PRN Reason: Protocol Last Admin: 12/15/17 09:19 Dose: 40 mg Azithromycin 500 mg/ Sodium (Chloride) 250 mls @ 250 mls/hr IVPB DAILY MAHESH PRN Reason: Protocol Last Admin: 12/15/17 09:18 Dose: 250 mls/hr Piperacillin Sod/Tazobactam (Sod 3.375 gm/ Sodium Chloride) 100 mls @ 100 mls/ hr IVPB Q8 MAHESH PRN Reason: Protocol Last Admin: 12/15/17 09:17 Dose: 100 mls/hr Lactobacillus Acidophilus (Bacid Acidophilus) 1 cap PO BID [facility] Last Admin: 12/15/17 09:20 Dose: 1 cap - Labs Labs: 12/15/17 05:53 12/15/17 05:53 PT 13.0 Seconds (9.8-13.1) 12/13/17 17:40 INR 1.2 (0.9-1.2) 12/13/17 17:40 APTT 29.2 Seconds (25.6-37.1) 12/13/17 17:40 - Constitutional Appears: Chronically Ill - Head Exam Head Exam: ATRAUMATIC, NORMAL INSPECTION, NORMOCEPHALIC - Eye Exam Eye Exam: Normal appearance - ENT Exam ENT Exam: Mucous Membranes Moist - Neck Exam Neck Exam: Full ROM - Respiratory Exam Respiratory Exam: Decreased Breath Sounds, Rales, Rhonchi, Wheezes - Cardiovascular Exam Cardiovascular Exam: REGULAR RHYTHM, +S1, +S2 - GI/Abdominal Exam GI & Abdominal Exam: Normal Bowel Sounds - Neurological Exam Neurological Exam: Alert, Awake, CN II-XII Intact - Psychiatric Exam Psychiatric exam: Normal Affect - Skin Skin Exam: Normal Color Assessment and Plan (1) Testosterone deficiency Status: Acute (2) Pneumonia Status: Acute (3) Pulmonary embolism Status: Acute - Assessment and Plan (Free Text) Plan: Continue present rx.
[2017-12-16 00:09] VITALS: RESP 18
[2017-12-16] MEDS: Piperacillin/Tazobact 3.375 GM in Sodium Chloride 0.9% 100 ML IVPB SCH ×2 (01:11→08:33)
[2017-12-16] MEDS: Enoxaparin 40 mg Syringe SC SCH (08:33)
[2017-12-16] MEDS: Azithromycin 500 MG in Sodium Chloride 0.9% 250 ML IVPB SCH (08:33)
[2017-12-16] MEDS: Lactobacillus Acidophilus 500 MU Cap PO SCH (08:35)
--- NOTE | 2017-12-16 09:56 | RAD ---
HISTORY: pneumonia COMPARISON: No prior. TECHNIQUE: Chest PA and lateral FINDINGS: LUNGS: Persistent right middle lobe infiltrate with minimal improvement. No new infiltrate elsewhere. PLEURA: No significant pleural effusion identified. No pneumothorax apparent. CARDIOVASCULAR: Normal. OSSEOUS STRUCTURES: No significant abnormalities. VISUALIZED UPPER ABDOMEN: Normal. OTHER FINDINGS: None. IMPRESSION: Minimal improvement in right middle lobe infiltrate. Otherwise unremarkable.
--- NOTE | 2017-12-16 11:35 | CP.PCM.PN ---
Subjective - Date & Time of Evaluation Date of Evaluation: 12/16/17 Time of Evaluation: 11:30 - Subjective Subjective: Seated up in bed, appears comfortable. No respiratory distress, occasional cough with scant sputum. Has remained afebrile. CXR today showing gradual further clearing of infiltrate. Generalized flushed appearance is gradually subsiding. Pharynx is pink and moist w/o exudate. Neck is supple and trachea midline. No JVD. No dullness on chest percussion, equal expansion. Breath sounds well heard bilaterally w/o audible wheeze. Few scattered rhonchi and occasional rales in lower right chest laterally. No bronchial breath sounds or egophony. No rub. Sputum reported 'normal oral kang'. Agree with ID, better antibiotic for OP would probably be levofloxacin 750MG daily. Follow up chest x-ray in one week to document clearing. Mycoplasma Ab results are still pending. Objective - Vital Signs/Intake and Output Vital Signs (last 24 hours): Temp Pulse Resp BP Pulse Ox 97.8 F 76 18 130/83 97 12/16/17 08:00 12/16/17 08:00 12/16/17 08:00 12/16/17 08:00 12/16/17 08:00 - Medications Medications: Current Medications Acetaminophen (Tylenol 325mg Tab) 650 mg PO Q4 PRN PRN Reason: fever Last Admin: 12/14/17 13:59 Dose: 650 mg Albuterol Sulfate (Albuterol 0.083% Inhal Suzanne (2.5 Mg/3 Ml) Ud) 2.5 mg INH RQ6 PRN PRN Reason: Shortness of Breath Last Admin: 12/14/17 09:07 Dose: 2.5 mg Aspirin (Aspirin Chewable) 81 mg PO DAILY [facility] Last Admin: 12/16/17 08:32 Dose: 81 mg Enoxaparin Sodium (Lovenox) 40 mg SC DAILY [facility] PRN Reason: Protocol Last Admin: 12/16/17 08:33 Dose: 40 mg Azithromycin 500 mg/ Sodium (Chloride) 250 mls @ 250 mls/hr IVPB DAILY [facility]ESH PRN Reason: Protocol Last Admin: 12/16/17 08:33 Dose: 250 mls/hr Piperacillin Sod/Tazobactam (Sod 3.375 gm/ Sodium Chloride) 100 mls @ 100 mls/ hr IVPB Q8 MAHESH PRN Reason: Protocol Last Admin: 12/16/17 08:33 Dose: 100 mls/hr Lactobacillus Acidophilus (Bacid Acidophilus) 1 cap PO BID [facility] Last Admin: 12/16/17 08:35 Dose: 1 cap - Labs Labs: 12/15/17 05:53 12/15/17 05:53 PT 13.0 Seconds (9.8-13.1) 12/13/17 17:40 INR 1.2 (0.9-1.2) 12/13/17 17:40 APTT 29.2 Seconds (25.6-37.1) 12/13/17 17:40 Assessment and Plan (1) Primary atypical pneumonia Status: Acute
--- NOTE | 2017-12-16 11:40 | CP.PCM.DIS ---
Provider - Provider Date of Admission: 12/13/17 19:04 Attending physician: Garrick Briggs MD Time Spent in preparation of Discharge (in minutes): 30 Diagnosis - Discharge Diagnosis (1) Testosterone deficiency Status: Acute (2) Pneumonia Status: Acute (3) Pulmonary embolism Status: Acute Hospital Course - Lab Results Lab Results: Micro Results 12/14/17 11:20 Sputum Gram Stain - Final 12/14/17 11:20 Sputum Sputum Culture - Final NORMAL ORAL PAUL 12/13/17 17:40 Blood Blood Culture - Preliminary NO GROWTH AFTER 48 HOURS 12/13/17 19:46 Urine,Clean Catch Urine Culture - Final No Growth (<1,000 CFU/ML) Most Recent Lab Values WBC 6.2 K/uL (4.8-10.8) 12/15/17 05:53 RBC 4.68 Mil/uL (4.40-5.90) 12/15/17 05:53 Hgb 13.9 g/dL (12.0-18.0) 12/15/17 05:53 Hct 41.4 % (35.0-51.0) 12/15/17 05:53 MCV 88.6 fl (80.0-94.0) 12/15/17 05:53 MCH 29.7 pg (27.0-31.0) 12/15/17 05:53 MCHC 33.6 g/dL (33.0-37.0) 12/15/17 05:53 RDW 13.6 % (11.5-14.5) 12/15/17 05:53 Plt Count 192 K/uL (130-400) 12/15/17 05:53 MPV 8.4 fl (7.2-11.7) 12/14/17 05:45 Neut % (Auto) 82.8 % (50.0-75.0) H 12/14/17 05:45 Lymph % (Auto) 10.2 % (20.0-40.0) L 12/14/17 05:45 [place] % (Auto) 6.8 % (0.0-10.0) 12/14/17 05:45 Eos % (Auto) 0.0 % (0.0-4.0) 12/14/17 05:45 Baso % (Auto) 0.2 % (0.0-2.0) 12/14/17 05:45 Neut # 5.8 K/uL (1.8-7.0) 12/14/17 05:45 Lymph # 0.7 K/uL (1.0-4.3) L 12/14/17 05:45 [place] # 0.5 K/uL (0.0-0.8) 12/14/17 05:45 Eos # 0.0 K/uL (0.0-0.7) 12/14/17 05:45 Baso # 0.0 K/uL (0.0-0.2) 12/14/17 05:45 Neutrophils % (Manual) 91 % (42-75) H 12/13/17 17:42 Lymphocytes % (Manual) 5 % (20-50) L 12/13/17 17:42 Monocytes % (Manual) 4 % (0-10) 12/13/17 17:42 Platelet Estimate Normal (NORMAL) 12/13/17 17:42 RBC Morphology Normal (NORMAL) 12/13/17 17:42 PT 13.0 Seconds (9.8-13.1) 12/13/17 17:40 INR 1.2 (0.9-1.2) 12/13/17 17:40 APTT 29.2 Seconds (25.6-37.1) 12/13/17 17:40 pO2 33 mm/Hg (30-55) 12/13/17 21:05 VBG pH 7.45 (7.32-7.43) H 12/13/17 21:05 VBG pCO2 34 mmHg (40-60) L 12/13/17 21:05 VBG HCO3 24.2 mmol/L 12/13/17 21:05 VBG Total CO2 24.6 mmol/L (22-28) 12/13/17 21:05 VBG O2 Sat (Calc) 81.0 % (40-65) H 12/13/17 21:05 VBG Base Excess 0.1 mmol/L (0.0-2.0) 12/13/17 21:05 VBG Potassium 3.4 mmol/L (3.6-5.2) L 12/13/17 21:05 Sodium 136.0 mmol/L (132-148) 12/13/17 21:05 Chloride 104.0 mmol/L (98-107) 12/13/17 21:05 Glucose 132 mg/dL (75-110) H 12/13/17 21:05 Lactate 1.6 mmol/L (0.7-2.1) 12/13/17 21:05 FiO2 21.0 % 12/13/17 21:05 Sodium 143 mmol/l (132-148) 12/15/17 05:53 Potassium 3.7 MMOL/L (3.6-5.0) 12/15/17 05:53 Chloride 105 mmol/L (98-107) 12/15/17 05:53 Carbon Dioxide 24 mmol/L (22-30) 12/15/17 05:53 Anion Gap 18 (10-20) 12/15/17 05:53 BUN 15 mg/dl (9-20) 12/15/17 05:53 Creatinine 1.0 mg/dl (0.8-1.5) 12/15/17 05:53 Est GFR ( Amer) > 60 12/15/17 05:53 Est GFR (Non-Af Amer) > 60 12/15/17 05:53 Random Glucose 107 mg/dL (75-110) 12/15/17 05:53 Calcium 8.8 mg/dL (8.4-10.2) 12/15/17 05:53 Phosphorus 1.7 mg/dl (2.5-4.5) L 12/13/17 17:42 Magnesium 1.9 MG/DL (1.6-2.3) 12/13/17 17:42 Total Bilirubin 3.3 mg/dl (0.2-1.3) H 12/13/17 17:42 AST 29 U/L (17-59) 12/13/17 17:42 ALT 45 U/L (21-72) 12/13/17 17:42 Alkaline Phosphatase 80 U/L (38-126) 12/13/17 17:42 Total Protein 8.0 G/DL (6.3-8.2) 12/13/17 17:42 Albumin 4.4 g/dL (3.5-5.0) 12/13/17 17:42 Globulin 3.6 gm/dL (2.2-3.9) 12/13/17 17:42 Albumin/Globulin Ratio 1.2 (1.0-2.1) 12/13/17 17:42 Lipase 26 U/L (23-300) 12/13/17 17:42 Prostate Specific Ag 2.68 ng/ML (0.00-4.0) 12/14/17 14:18 TSH 3rd Generation 1.26 mIU/ML (0.46-4.68) 12/14/17 14:18 Venous Blood Potassium 3.4 mmol/L (3.6-5.2) L 12/13/17 21:05 Urine Color Yellow (YELLOW) 12/13/17 19:46 Urine Clarity Slighty-cloudy (Clear) 12/13/17 19:46 Urine pH 7.0 (5.0-8.0) 12/13/17 19:46 Ur Specific [place] 1.027 (1.003-1.030) 12/13/17 19:46 Urine Protein 100 mg/dL (NEGATIVE) 12/13/17 19:46 Urine Glucose (UA) Neg mg/dL (Normal) 12/13/17 19:46 Urine Ketones Trace mg/dL (NEGATIVE) 12/13/17 19:46 Urine Blood Small (NEGATIVE) 12/13/17 19:46 Urine Nitrate Negative (NEGATIVE) 12/13/17 19:46 Urine Bilirubin Negative (NEGATIVE) 12/13/17 19:46 Urine Urobilinogen 4.0 mg/dL (0.2-1.0) 12/13/17 19:46 Ur Leukocyte Esterase Small Oneal/uL (Negative) 12/13/17 19:46 Urine RBC (Auto) 6 /hpf (0-3) H 12/13/17 19:46 Urine Microscopic WBC 7 /hpf (0-5) H 12/13/17 19:46 Ur Squamous Epith Cells 5 /hpf (0-5) 12/13/17 19:46 HIV-1 Ab Rapid Screen Non reactive (NON REAC) 12/14/17 17:24 Influenza Typ A,B (EIA) Negative for flu a/b (NEGATIVE) 12/13/17 17:42 Ur L.pneumophila Ag Negative (NEGATIVE) 12/14/17 18:20 - Hospital Course Hospital Course: Patient presented with hx of fever, persistent severe cough,SOB, rigors, headaches, myalgia and general malaise x 3 days. In ER was found to have a large rt lover lobe infiltrate, lactic acidosis t 101, tachycardia, hypoximia. Patient still c/o rigors, fever, general malaise. Denies any exposure to TB, smoking, chemical exposure, COPD. Patient on Testosterone replacement TestoPal. The pulmonary side effect of the drug include pulmonary microembolism, respiratory infection, copd, respiratory distress. He well respond to the iv antibx, will DC on Levaquin f/u in my office in 2 days Discharge Exam - Head Exam Head Exam: ATRAUMATIC, NORMAL INSPECTION, NORMOCEPHALIC - Eye Exam Eye Exam: Normal appearance Pupil Exam: PERRL - Neck Exam Neck exam: Full Rom - Respiratory Exam Respiratory Exam: Clear to PA & Lateral - Cardiovascular Exam Cardiovascular Exam: REGULAR RHYTHM, +S1, +S2 - GI/Abdominal Exam GI & Abdominal Exam: Normal Bowel Sounds - Extremities Exam Extremities exam: normal inspection - Neurological Exam Neurological exam: Alert, CN II-XII Intact, Oriented x3, Reflexes Normal - Psychiatric Exam Psychiatric exam: Normal Affect - Skin Skin Exam: Normal Color Discharge Plan - Follow Up Plan Condition: FAIR Disposition: HOME/ ROUTINE Instructions: Pneumonia (DC) Additional Instructions: follow up appointment with Dr. Briggs on dec 23 at 2:45pm Referrals: Garrick Briggs MD [Family Provider] -
[2017-12-16 12:39] VITALS: BP 138/88; PULSE 82; TEMP 98; O2SAT 99
== END 2017-12-16 14:22 | disposition home or self-care (01) | DRG 193 ==
LOC: H.ER 16:40 → H.ERHOLD 19:04 → H.TEL 21:47
PROVIDERS: ADMIT Internal Medicine; ATTEND Internal Medicine
PROC: 3E0F73Z Introduction of Anti-inflammatory into Respiratory Tract, Via Natural or Artificial Opening (ICD-10-PCS; 2017-12-13)
PROC: 3E0234Z Introduction of Serum, Toxoid and Vaccine into Muscle, Percutaneous Approach (ICD-10-PCS; principal; 2017-12-16)
DX: J18.8 Other pneumonia, unspecified organism (principal); I26.99 Other pulmonary embolism without acute cor pulmonale; R09.02 Hypoxemia; E29.1 Testicular hypofunction; Z23 Encounter for immunization; Z87.891 Personal history of nicotine dependence; Z91.041 Radiographic dye allergy status